=== PATIENT | male | born 1985 | race Caucasian/White ===

== ENCOUNTER 2016-10-26 17:32 | Emergency (ER) ==
--- NOTE | 2016-10-26 19:32 | PROVIDER DOCUMENTATION ---
HPI-General Adult - General Chief Complaint: Cough Stated Complaint: COUGH Time Seen by Provider: 10/26/16 18:39 Source: patient Allergies/Adverse Reactions: Patient Allergies Allergy/AdvReac Type Severity Reaction Status Date / Time No Known Allergies Allergy Verified 10/26/16 18:10 - History of Present Illness -Gen Adult Nature of Presenting Problems: 31 yo male presents to the emergency room with a chief complaint of congestion and cough X 6 days. Reports cough had become more productive X 2 days. Reports shortness of breath with cough. Reports taking Mucinex OTC and using his grandmother's breathing machine with relief. Denies fever, chills, N/V/D. Severity: reports: moderate Onset/Duration: reports: 6 days ago Modifying Factors: worse with: coughing Associated Symptoms: reports: shortness of breath. denies: fever/chills Review of Systems - Adult - REVIEW OF SYSTEMS - ADULT Constitutional: denies: chills, fever Eyes: reports: no symptoms reported Ears, Nose, Mouth & Throat: reports: no symptoms reported Cardiovascular: reports: no symptoms reported Respiratory: reports: cough, shortness of breath, wheezing Gastrointestinal: reports: no symptoms reported Genitourinary: reports: no symptoms reported Musculoskeletal: reports: no symptoms reported Integumentary: reports: no symptoms reported Neurological: reports: no symptoms reported Psychiatric: reports: no symptoms reported Endocrine: reports: no symptoms reported Hematologic/Lymphatic: reports: no symptoms reported Allergic/Immunologic: reports: no symptoms reported All Other Systems: Reviewed and Negative Past History - Adult - PAST MEDICAL HISTORY-ADULT Review of Records: reports: Nursing Assessment Review, Medications Reviewed - PRIOR SURGERIES/PROCEDURES Surgical/Procedure History: reports: appendectomy, joint replacement (total knee ) - IMMUNIZATION STATUS Childhood Immunizations: See Nurse Assessment Flu Vaccine: See Nurse Assessment - SOCIAL HISTORY Smoking: denies Physical Exam-General - PHYSICAL EXAM-ADULT Initial Vital Signs Reviewed: Yes - CONSTITUTIONAL General Appearance: appears well, alert, no apparent distress - EYES Eyes: PERRL/EOMI, pink conjunctivae - HEAD, EARS, NOSE, MOUTH & THROAT HENMT: normocephalic/atraumatic, moist mucous membranes, normal ENT inspection, TMs normal - NECK Neck: full range of motion, supple - RESPIRATORY Respiratory: lungs clear, normal breath sounds - CARDIOVASCULAR Cardiovascular: normal peripheral pulses, regular rate, rhythm - GASTROINTESTINAL (ABDOMEN) Abdominal Exam: non tender, soft Progress - PLAN OF CARE/RESULTS Progress/Plan/Lab Results: Discussed care, diagnosis and need for follow-up, patient verbalized understanding Orders Category Date Time Status CHEST-2 VIEWS [RAD] Stat Exams 10/26/16 19:27 Taken Last Vital Signs Temp 98.2 F 10/26/16 18:05 Pulse 101 H 10/26/16 18:05 Resp 20 10/26/16 18:05 BP 131/75 10/26/16 18:05 Pulse Ox 93 L 10/26/16 18:05 Allergies No Known Allergies Allergy (Verified 10/26/16 18:10) Orders 10/26/16 19:27 CHEST-2 VIEWS [RAD] Stat Vital Signs - 24 hr 10/26/16 18:05 Temperature 98.2 F Pulse Rate 101 H Respiratory 20 Rate Blood Pressure 131/75 O2 Sat by Pulse 93 L Oximetry - XRAY 1 XRAY Study: Chest Impression: Normal XRAY Interpretation: viewed per Dr. Cortez Departure - Departure Time of Disposition Order: 20:09 DIAGNOSIS: Bronchitis Disposition: HOME 01 Certified Medical Emergency: Urgent Condition: Good Additional Instructions: ED Follow Up Instructions: You have been treated by a care provider in the Emergency Department. These instructions are being provided to you so you can have an understanding of how to care for yourself upon discharge. Upon discharge from the Emergency Department, you are responsible for making arrangements for follow-up care by a physician of your choice. Take all prescribed medications as directed. Return to the Emergency Department immediately for any new or worsening symptoms. You may call the Physician Referral phone number at [phone] to obtain a list of Physicians who are taking new patients. Prescriptions: Prednisone 20 mg PO DAILY #5 tablet Albuterol Sulfate Inhaler [Ventolin Hfa] 2 puff INH [id number] #1 inhaler Azithromycin [Zithromax Z-Parveen] 250 mg PO DIRECTED #1 pkg Referrals: Alex Ascencio MD [STAFF PHYSICIAN] - None,PCP [Primary Care Provider] - Forms: Return to School/Parent Work Instructions: Albuterol inhalation aerosol, Azithromycin tablets, Prednisone tablets, Acute Bronchitis Attestation - Physician/ Mid-level Attestation Patient care was provided by Mid-level provider (PAN PUSHER/PA):: Yes Mid-level provider:: Moon Rothman Mid-level documentation review:: The Mid-level provider documentation, treatment plan and medical decision making was reviewed by the physician who agrees with all treatment and medical decision making by the MLP.
[2016-10-26] MEDS ORDERED: DECADRON IM ONE (20:10)
[2016-10-26 20:55] VITALS: BP 172/118
--- NOTE | 2016-10-27 09:21 | Diag Imaging Result Document ---
PROCEDURE NAME: CHEST-2 VIEWS - 10/26/2016 CHEST, TWO VIEWS: INDICATION: Cough. COMPARISON: 09/03/2016. FINDINGS: The cardiomediastinal silhouette is within normal limits. The pulmonary vasculature is not congested. No infiltrates or effusions are identified. IMPRESSION: Stable chest. No acute abnormalities.
== END 2016-10-26 21:04 | disposition home or self-care (01) ==
LOC: P.ED 17:32
DX: J40 Bronchitis, not specified as acute or chronic (principal); R05 Cough; R09.81 Nasal congestion; R09.3 Abnormal sputum; R06.02 Shortness of breath; R06.2 Wheezing; Z96.659 Presence of unspecified artificial knee joint
CPT/HCPCS: 71020; 96372